=== PATIENT | male | born 1980 | race Asian ===

== ENCOUNTER 2017-09-21 04:40 | Emergency (ER) | payer OTHER ==
[~2017-09-21] VITALS: Ht 185.4 cm; Wt 120.2 kg
== END 2017-09-21 09:09 | disposition home or self-care (01) ==
LOC: ED 04:40
DX: M51.36 Other intervertebral disc degeneration, lumbar region (principal); M47.896 Other spondylosis, lumbar region
CPT/HCPCS: 81000; 96372; 99283; J2360

== ENCOUNTER 2018-07-06 08:37 | Emergency (ER) | payer OTHER ==
[~2018-07-06] VITALS: Ht 167.6 cm; Wt 122.5 kg
[2018-07-06 09:32] VITALS: BP 123/68; TEMP 98
== END 2018-07-06 09:35 | disposition home or self-care (01) ==
LOC: ED 08:37
DX: M51.26 Other intervertebral disc displacement, lumbar region (principal)
CPT/HCPCS: 96372; 99283; J1885

== ENCOUNTER 2019-01-09 00:04 | Emergency (ER) | payer BC ==
[~2019-01-09] VITALS: Ht 188 cm; Wt 122.5 kg
[2019-01-09 00:46] VITALS: BP 159/84; TEMP 98.1
== END 2019-01-09 00:46 | disposition home or self-care (01) ==
LOC: ED 00:04
DX: K02.9 Dental caries, unspecified (principal)
CPT/HCPCS: 99282

== ENCOUNTER 2019-05-11 16:04 | Emergency (ER) | payer BC ==
[~2019-05-11] VITALS: Ht 185.4 cm; Wt 129.3 kg
[2019-05-11 16:10] VITALS: TEMP 98.1
[2019-05-11 18:30] VITALS: BP 153/86
== END 2019-05-11 18:32 | disposition home or self-care (01) ==
LOC: ED 16:04
DX: S43.402A Unspecified sprain of left shoulder joint, initial encounter (principal); R07.89 Other chest pain
CPT/HCPCS: 93005; 96372; 99283; J1885

== ENCOUNTER 2020-03-26 18:24 | Emergency (ER) | payer BC ==
[~2020-03-26] VITALS: Ht 185.4 cm; Wt 115.7 kg
[2020-03-26] MEDS ORDERED: GABA300C2 PO (18:41)
[2020-03-26] MEDS ORDERED: METOPROLOL25 M1 PO (18:41)
[2020-03-26] MEDS ORDERED: HYDR10TA47A PO (18:42)
[2020-03-26 19:04] LABS: PLATELET COUNT 257 K/uL (142-355)
[2020-03-26 19:37] LABS: POTASSIUM 3.5 mmol/L (3.6-5.2); SODIUM 135 mmol/L (136-145)
[2020-03-26 19:48] LABS: PARTIAL THROMBOPLASTIN TIME 25.6 SECONDS (24.5-33.6)
[2020-03-26 20:54] VITALS: BP 135/74; TEMP 98.9
== END 2020-03-26 20:56 | disposition home or self-care (01) ==
LOC: ED 18:24
PROVIDERS: Hospitalist
DX: U07.1 COVID-19 (principal); J06.9 Acute upper respiratory infection, unspecified; J18.9 Pneumonia, unspecified organism; R50.9 Fever, unspecified; F17.290 Nicotine dependence, other tobacco product, uncomplicated
CPT/HCPCS: 36415; 80053; 82550; 82553; 83880; 84484; 85027; 85610; 85730; 87040; 87635; 87651; 93005; 96365; 96375; 99284; J0696; J1100; J2405; U0003

== ENCOUNTER 2020-04-21 09:53 | Outpatient (CLI) | payer OTHER ==
[~2020-04-21 09:53] MED LIST: GABA300C2 PO; HYDR10TA47A PO; METOPROLOL25 M1 PO
== END 2020-04-21 23:11 | disposition home or self-care (01) ==
LOC: RAD 09:53
DX: S39.92XS Unspecified injury of lower back, sequela (principal); M54.5 Low back pain; I10 Essential (primary) hypertension; M25.561 Pain in right knee; M25.512 Pain in left shoulder; M25.511 Pain in right shoulder

== ENCOUNTER 2020-09-12 08:20 | Emergency (ER) | payer BC ==
[~2020-09-12] VITALS: Ht 188 cm; Wt 120.2 kg
[2020-09-12 08:25] VITALS: TEMP 98.4
[2020-09-12] MEDS ORDERED: ZANAFLEX2 MG PO (08:30)
[2020-09-12 09:33] VITALS: BP 168/89
== END 2020-09-12 09:32 | disposition home or self-care (01) ==
LOC: ED 08:20
DX: M51.36 Other intervertebral disc degeneration, lumbar region (principal)
CPT/HCPCS: 96372; 99283; J1100; J1170

== ENCOUNTER 2020-09-20 22:15 | Emergency (ER) | payer BC ==
[~2020-09-20] VITALS: Ht 188 cm; Wt 130.6 kg
[~2020-09-20 22:15] MED LIST changes: +ZANAFLEX2 MG PO
[2020-09-20 22:52] LABS: PLATELET COUNT 294 K/uL (142-355)
[2020-09-20 23:05] LABS: SODIUM 137 mmol/L (136-145)
[2020-09-20] MEDS ORDERED: IBU800 MG PO (23:48)
[2020-09-20] MEDS ORDERED: LISI20TA31 (23:50)
[2020-09-20] MEDS ORDERED: FURO20TA67 PO (23:50)
[2020-09-21 00:40] VITALS: BP 132/93; TEMP 98.3
== END 2020-09-21 00:40 | disposition home or self-care (01) ==
LOC: ED 22:15
PROVIDERS: Family Medicine
DX: R51.9 Headache, unspecified (principal); R42 Dizziness and giddiness; J45.909 Unspecified asthma, uncomplicated; Z77.22 Contact with and (suspected) exposure to environmental tobacco smoke (acute) (chronic)
CPT/HCPCS: 36415; 80053; 83880; 84484; 85027; 93005; 94664; 96374; 96376; 99284; J1100; J2405

== ENCOUNTER 2022-03-10 13:30 | Emergency (ER) | payer BC ==
[~2022-03-10] VITALS: Ht 185.4 cm; Wt 139.3 kg
[~2022-03-10 13:30] MED LIST changes: +FURO20TA67 PO; +IBU800 MG PO; +LISI20TA31
[2022-03-10 13:35] VITALS: TEMP 99.1
[2022-03-10 13:58] LABS: PLATELET COUNT 330 K/uL (142-355)
[2022-03-10 15:18] LABS: POTASSIUM 4.3 mmol/L (3.6-5.2)
[2022-03-10 16:15] VITALS: BP 143/89
== END 2022-03-10 16:24 | disposition home or self-care (01) ==
LOC: ED 13:30
PROVIDERS: Emergency Medicine
DX: K29.60 Other gastritis without bleeding (principal)
CPT/HCPCS: 36415; 80053; 81002; 83690; 84484; 85027; 93005; 96360; 96374; 96375; 99284; J2270; J2405; J3490; Q9963

== ENCOUNTER 2022-04-09 00:51 | Emergency (ER) | payer BC ==
[~2022-04-09] VITALS: Ht 185.4 cm; Wt 139.3 kg
[2022-04-09] MEDS ORDERED: LISI20TA11 PO (01:13)
[2022-04-09 02:18] VITALS: BP 134/75; TEMP 98.9
== END 2022-04-09 02:18 | disposition home or self-care (01) ==
LOC: ED 00:51
DX: K02.9 Dental caries, unspecified (principal)
CPT/HCPCS: 96372; 99283; J1885

== ENCOUNTER 2022-06-12 09:24 | Outpatient (CLI) | payer BC ==
[~2022-06-12 09:24] MED LIST changes: +LISI20TA11 PO
== END 2022-06-12 19:02 | disposition home or self-care (01) ==
LOC: RAD 09:24
PROVIDERS: ATTEND Physical Medicine & Rehabilitation Pain Medicine
DX: M54.16 Radiculopathy, lumbar region (principal)

== ENCOUNTER 2022-09-17 13:13 | Emergency (ER) | payer OTHER ==
[~2022-09-17] VITALS: Ht 185.4 cm; Wt 129.3 kg
[2022-09-17 13:24] VITALS: TEMP 99.3
[2022-09-17 14:22] VITALS: BP 141/79
[2022-09-17 14:31] LABS: PLATELET COUNT 345 K/uL (142-355)
== END 2022-09-17 15:57 | disposition home or self-care (01) ==
LOC: ED 13:13
PROVIDERS: Emergency Medicine Emergency Medical Services
DX: J45.909 Unspecified asthma, uncomplicated (principal); Z20.822 Contact with and (suspected) exposure to COVID-19; F17.210 Nicotine dependence, cigarettes, uncomplicated
CPT/HCPCS: 36415; 36600; 80048; 82805; 84484; 85027; 87040; 87502; 87635; 87651; 93005; 94664; 96361; 96365; 96375; 99284; J0696; J2930; U0003